=== PATIENT | female | born 1985 | race Caucasian/White ===

== ENCOUNTER → 2020-08-16 08:53 | Outpatient (BNVA) | payer OTHER, SELFPAY | PROVIDERS: Family Provider Family Medicine; Visit Provider Obstetrics & Gynecology | DX: R10.2 Pelvic and perineal pain (principal) | CPT/HCPCS: 76830 ==

== ENCOUNTER → 2020-10-28 08:38 | Outpatient (BNVA) | payer OTHER, SELFPAY | PROVIDERS: Family Provider Family Medicine; Visit Provider Obstetrics & Gynecology | DX: Z20.828 Contact with and (suspected) exposure to other viral communicable diseases (principal) | CPT/HCPCS: 87635 ==

== ENCOUNTER 2020-11-02 07:37 | Day surgery (SDC) | payer OTHER, SELFPAY ==
[2020-10-31 11:35] VITALS: BMI 33.9
--- NOTE | 2020-10-31 11:59 | ANES.PREANE2 ---
Pre-Anesthetic Assessment Pre-Anesthetic Assessment: Height/Weight: Height 1.68 m Weight 95.254 kg Preop Diagnosis: Chronic pelvic pain Proposed Procedure: Operation Date: 11/02/20 09:05 Proposed Procedures p Laparoscopy Diagnostic 90136 R10.2(Not Applicable) - Ayo Haynes MD Familial anesthetic complications: NOne Social: Social History: No alcohol and No tobacco Exam: Pre-Anes Outpt Exam: alert, oriented x 3, clear to auscultation bilaterally and regular rate & rhythm Airway: Cervical ROM: WNL MP: 4 Dentition: Other (missing teeth) CV/HEM: Comments: flow-murmur Metabolic: Comments: pcos Anesthetic Plan: ASA status: 2 Anesthesia: General Risk of > 500 ml blood loss (7ml/kg in children): No PFSH Anesthesia PFSH: Medical History Abnormal uterine bleeding (AUB) Chronic pelvic pain in female History of hysteroscopy PCOS (polycystic ovarian syndrome) Surgical History (Updated 10/31/20 @ 08:32 by Ekta Ortega RN) S/P appendectomy Family History Mother Hypertension Thyroid condition Hyperlipidemia Grandfather Hypertension maternal Heart disease maternal Hyperlipidemia maternal Grandmother Colon cancer paternal Denies family history of Ovarian cancer Diabetes Clotting disorder Breast cancer Anesthesia complication Bleeding disorder Uterine cancer Stroke Social History (Updated 10/31/20 @ 08:31 by Ekta Ortega RN) Smoking and tobacco status: never smoked Alcohol intake: current Alcohol intake frequency: other Alcohol type: wine Substance/Drug Use: never Data Anesthesia CBC & Chem 7: 10/31/20 11:50 10/31/20 11:50 Cardiac Studies: No Data to Display
[2020-10-31 12:00] LABS: Add Urine Microscopic? NO
[2020-10-31 12:33] LABS: Bilirubin Urine Neg (Negative); Blood Urine Neg (Negative); Glucose Urine UA Norm (Normal); Ketones Urine Negative (Negative); Leukocyte Esterase Urine Negative (Negative); Nitrate Urine Negative (Negative); Protein Urine Neg (Negative); Specific Gravity, Urine 1.005 (1.005-1.030); Urine Appearance Clear (CLEAR); Urine Color Straw (Yellow); Urobilinogen Urine Norm (Negative); pH Urine 6.5 (5-7)
[2020-10-31 12:34] LABS: Alanine Aminotransferase 17 U/L (0-33); Albumin Level 4.4 g/dL (3.5-5.2); Alkaline Phosphatase 82 IU/L (35-105); Anion Gap 14.1 (5-19); Aspartate Amino Transferase 16 U/L (0-32); Blood Urea Nitrogen 10 mg/dL (6-20); Calcium 9.9 mg/dL (8.5-10.5); Carbon Dioxide 26 mmol/L (22-29); Chloride 101 mmol/L (98-107); Creatinine Clr Calc Pharmacy 149.3246; Globulin 3.3 g/dL (1.3-4.6); Glomerular Filtration Rate 112.5 mL/min (90-130); Glucose 94 mg/dL (65-115); Osmolality Calculated 283 mOsm/kg (285-295); Potassium 4.1 mmol/L (3.5-5.1); Sodium 137 mmol/L (136-145); Total Bilirubin 0.2 mg/dL (0.15-1.2); Total Protein 7.7 g/dL (6.6-8.7)
[2020-10-31 12:38] LABS: Basophils # 0.1 10^3/uL (0.0-0.1); Basophils % 0.6 %; Eosinophils # 0.2 10^3/uL (0.0-0.8); Eosinophils % 1.4 %; Hematocrit 41.5 % (37.0-47.0); Hemoglobin 12.8 g/dL (11.5-15.3); Lymphocytes # 2.4 10^3/uL (0.8-4.8); Lymphocytes % 23.2 %; Mean Corpuscular HGB Conc 30.8 g/dL (30.0-36.0); Mean Corpuscular Hemoglobin 26.9 pg (28.0-34.0); Mean Corpuscular Volume 87.2 fL (81-99); Mean Platelet Volume 11.2 fL (7.4-10.4); Monocytes # 0.7 10^3/uL (0.2-0.9); Monocytes % 6.7 %; Neutrophils # 7.09 10^3/uL (1.8-7.7); Neutrophils % 67.6 %; Nucleated Red Blood Cells % 0 %; Platelet Count 294 10^3/cmm (130-400); Red Blood Count 4.76 10^6/uL (4.1-5.3); Red Cell Distribution Width 13.3 % (12.1-15.1); White Blood Count 10.5 10^3/uL (4.0-10.0)
[2020-11-02] VITALS (11 sets, daily range): BP systolic 125–158; BP diastolic 41–108; PULSE 70–94; RESP 15–18; TEMP 36.1–36.2; O2SAT 95–100
--- NOTE | 2020-11-02 08:03 | P.ANESUD_ITS ---
Pre-Anesthetic Update Pre-Anesthetic Assessment: Date of Surgery/Procedure: 11/02/20 Preop Annalisa gnosis: Chronic pelvic pain Proposed Procedure: Operation Date: 11/02/20 09:05 Proposed Procedures p Laparoscopy Diagnostic 07712 R10.2(Not Applicable) - Ayo Haynes MD Any changes to Pre-Anesthetic Assessment?: No Labs Last 48hrs: Laboratory Results - last 48 hr 10/31/20 10/31/20 10/31/20 11:50 11:50 11:50 WBC 10.5 H RBC 4.76 Hgb 12.8 Hct 41.5 MCV 87.2 MCH 26.9 L MCHC 30.8 RDW 13.3 Plt Count 294 MPV 11.2 H Neut % (Auto) 67.6 Lymph % (Auto) 23.2 [place] % (Auto) 6.7 Eos % (Auto) 1.4 Baso % (Auto) 0.6 Neut # (Auto) 7.09 Lymph # (Auto) 2.4 [place] # (Auto) 0.7 Eos # (Auto) 0.2 Baso # (Auto) 0.1 Nucleated RBC % (a uto) 0 Nucleated RBCs # 0.0 Sodium 137 Potassium 4.1 Chloride 101 Carbon Dioxide 26 Anion Gap 14.1 BUN 10 Creatinine 0.6 GFR Calculation 112.5 Glucose 94 Calculated Osmolal ity 283 L Calcium 9.9 Total Bilirubin 0.2 AST 16 ALT 17 Alkaline Phosphata se 82 Total Protein 7.7 Albumin 4.4 Globulin 3.3 Urine Color Straw Urine Appearance Clear Urine pH 6.5 Ur Specific Gravit y 1.005 Urine Protein Neg Urine Glucose (UA) Norm Urine Ketones Negative Urine Blood Neg Urine Nitrate Negative Urine Bilirubin Neg Urine Urobilinogen Norm Ur Leukocyte Fabi ase Negative Blood Type Rho(D) Type Antibody Screen 10/31/20 11:50 WBC RBC Hgb Hct MCV MCH MCHC RDW Plt Count MPV Neut % (Auto) Lymph % (Auto) [place] % (Auto) Eos % (Auto) Baso % (Auto) Neut # (Auto) Lymph # (Auto) [place] # (Auto) Eos # (Auto) Baso # (Auto) Nucleated RBC % (a uto) Nucleated RBCs # Sodium Potassium Chloride Carbon Dioxide Anion Gap BUN Creatinine GFR Calculation Glucose Calculated Osmolal ity Calcium Total Bilirubin AST ALT Alkaline Phosphata se Total Protein Albumin Globulin Urine Color Urine Appearance Urine pH Ur Specific Gravit y Urine Protein Urine Glucose (UA) Urine Ketones Urine Blood Urine Nitrate Urine Bilirubin Urine Urobilinogen Ur Leukocyte Fabi ase Blood Type O Positive Rho(D) Type Positive Antibody Screen Negative Vitals: Pulse Rhythm 11/02/20 07:55 Pulse Strength 3+ Normal 11/02/20 07:55 Oxygen Delivery Me thod 11/02/20 07:55 Exam: Pre-Anes Outpt Exam: alert, oriented x 3, clear to auscultation bilaterally and regular rate & rhythm Cardiac Studies: No Data to Display
--- NOTE | 2020-11-02 08:24 | W.PM.OPSUD ---
Surgery/Procedure H&P Update DATE OF PROCEDURE: November 02, 2020 DATE H&P PERFORMED: 10/31/20 H&P UPDATE INFORMATION: I have reviewed H&P completed within last 30 days, I have examined patient prior to procedure and No changes to prior documentation PREOP DIAGNOSIS: Chronic pelvic pain PLANNED PROCEDURE: Operation Date: 11/02/20 09:05 Proposed Procedures p Laparoscopy Diagnostic 25850 R10.2(Not Applicable) - Ayo Haynes MD
[2020-11-02] MEDS: sodium chloride 0.9% 1,000 ML 30 ML IV (08:38)
[2020-11-02] MEDS: scopolamine 1.5 Patch 1 PATCH TRANSDERMA (08:38)
[2020-11-02 09:02] LABS: OR HCG Qualitative Urine Negative (Negative)
--- NOTE | 2020-11-02 12:03 | P.OP_ITS ---
Operative Report Date of procedure: November 02, 2020 Pre-op Diagnosis: Chronic pelvic pain Post-op diagnosis: same Procedure Done: Diagnostic laparoscopy. Fulguration of endometriosis lesions Pathology: none sent Surgeon: Ayo Haynes MD Anesthesia: General Estimated blood loss (mL): 2 IV fluids (mL): 1,200 Urine output (mL): 100 Findings: Moderate endometriosis Condition: stable Disposition: PACU Brief History: 35-year-old female with a history of chronic pelvic pain unresponsive to medical management Procedure: DESCRIPTION OF PROCEDURE: After informed consent, the patient was taken to the operating room where general anesthesia was administered. The patient was examined under anesthesia and found to have a normal uterus with normal adnexa. She was placed in the dorsal lithotomy position and prepped and draped in sterile fashion. Pre- Procedure Time-Out verifying the correct patient identity, correct procedure verified with consent, correct site and side, correct patient position, availability of correct implants and any special equipment or requirements was performed and acknowledge by the OR team. A weighted speculum was placed in the vagina, and the anterior lip of cervix was grasped with the single toothed tenaculum. A uterine manipulator was advanced into the endocervical. Tenaculum was removed after uterine manipulator was secured. The speculum was removed from the vagina. An intraumbilical incision was made with a scalpel. While tenting up on the abdomen, a Verres needle with sleeve was admitted into the intra-abdominal cavity. A saline drop test was performed and noted to be within normal limits. Pneumoperitoneum was attained with 4 liters of carbon dioxide. The Verres needle was removed. A 5 mm trocar and sleeve were admitted into the abdomen and laparoscopic confirmation of location was achieved, A second incision was made 3 cm above the symphysis pubis, and a 5 mm trocar and sleeve were admitted into the abdomen under direct, laparoscopic visualization without complication. A survey revealed normal abdominal anatomy but pelvic survey showsl uterus with serosal endometriosis, left and right adnexa. A 5 mm blunt probe was advanced through the second trocar sleeve, and light manipulation of ovaries and uterus to assess the posterior aspects was performed red endometriosis lesions noted in the posterior cul-de-sac. The endometriosis lesions were fulgurated with monopolar spatula without complications. No bleeding was noted. The carbon dioxide was allowed to escape from the abdomen. The instruments were removed, and skin cover with a bandage. The instruments were removed from the vagina, and excellent hemostasis was noted. The patient tolerated the procedure well, and sponge, lap and needle count were correct times two. The patient taken to the recovery room in good condition.
[2020-11-02] MEDS: ondansetron 2 mg/ML SDV 2 mL 4 MG IVP ×2 (12:29→13:07)
[2020-11-02] MEDS: HYDROcodone-acetaminophen 5-325 mg Tablet 1 TAB PO (12:58)
--- NOTE | 2020-11-02 13:00 | ANE.PACU2 ---
Inpatient post-anesthesia follow up: Airway intact: Yes Vital signs: Temperature 97 F Pulse Rate 70 Respiratory Rate 18 Blood Pressure 150/94 Pulse Oximetry 98 Oxygen Delivery Me thod Room Air Oxygen Flow Rate 8 Fraction of Inspir ed Oxygen Hydration adequate: Yes Nausea and vomiting: No Pain level: 2 Mental status: Baseline
== END 2020-11-02 13:58 | disposition home or self-care (01) ==
PROVIDERS: Visit Provider Obstetrics & Gynecology
PROC: (CPT 49320; principal; 2020-11-02 09:05)
DX: R10.2 Pelvic and perineal pain (principal); E28.2 Polycystic ovarian syndrome; N80.3 Endometriosis of pelvic peritoneum
CPT/HCPCS: 58662; 12345; 36415; 80053; 81003; 84703; 85025; 86850; 86900; 96365; J0690; J2405; J2704; J3010; J3490; J7030

== ENCOUNTER 2023-10-16 09:29 | Outpatient (CLI) | payer OTHER, SELFPAY ==
--- NOTE | 2023-10-16 09:30 | MM_ITS ---
WS: [id number] SCREENING DIGITAL TOMOSYNTHESIS MAMMOGRAM WITH CAD HISTORY: SCREENING COMPARISON: None available. Bilateral CC and MLO with tomosynthesis views submitted. Synthetic mammography reviewed. Computer aid ed detection analyzed. Breast composition: There are scattered areas of fibroglandular density. No suspicious masses, microc alcifications or architectural distortion. IMPRESSION: MM/[place] [id number] BI-RADS: 1-Negative FOLLOW UP: 1 Year Follow-up
== END 2023-10-16 09:30 | disposition home or self-care (01) ==
LOC: MOBLMAM 09:37
PROVIDERS: PCP Family Medicine; Visit Provider Family Medicine
DX: Z12.31 Encounter for screening mammogram for malignant neoplasm of breast (principal)
CPT/HCPCS: 77063; 77067

== ENCOUNTER 2025-01-01 20:12 | Emergency (ER) | payer OTHER, SELFPAY ==
--- NOTE | 2025-01-01 20:15 | XRR_ITS ---
PROCEDURE INFORMATION: Exam: XR Left Foot Exam date and time: 01/01/2025 9:18 PM Age: 39 years old Clinical indication: Injury or trauma; Sprain or strain; Patient sustained twisting injury to left foot and ankle. Diffuse swelling to dorsal surface of foot. Unable to bear weight. TECHNIQUE: Imaging protocol: Radiologic exam of the left foot. Views: 3 or more views. COMPARISON: CR (LOW EXM, ) 01/01/2025 9:18 PM FINDINGS: Bones/joints: The 1st interspace is wide which raises some concern for a Lisfranc ligament injury. Tiny osseous fragments are seen in this location. MRI would be definitive. Soft tissues: Normal. XR/XR foot LT min 3V* [id number] IMPRESSION: Findings concerning for Lisfranc ligament injury. Recommend MRI to exclude underlying disruption.
[2025-01-01 20:18] VITALS: BP 149/74; PULSE 79; RESP 16; TEMP 36.3; O2SAT 99; BMI 34.8
--- NOTE | 2025-01-01 21:11 | XRR_ITS ---
PROCEDURE INFORMATION: Exam: XR Left Ankle Exam date and time: 01/01/2025 9:18 PM Age: 39 years old Clinical indication: Injury or trauma; Sprain or strain; Patient sustained twisting injury to left foot and ankle. Diffuse swelling to dorsal surface of foot. Unable to bear weight. TECHNIQUE: Imaging protocol: Radiologic exam of the left ankle. Views: 3 or more views. COMPARISON: CR (LOW EXM, ) 01/01/2025 9:18 PM FINDINGS: Bones/joints: Normal. Soft tissues: Normal. XR/XR ankle LT min 3V* [id number] IMPRESSION: No acute findings.
--- NOTE | 2025-01-01 21:14 | W.ED.EXTPRO ---
HPI - Extremity Problem General: Chief complaint: Extremity Injury, Lower Stated complaint: left foot may have broken Time Seen by Provider: 01/01/25 20:37 Source: patient Mode of arrival: ambulatory Limitations: no limitations History of Present Illness: 39-year-old female states that she had fell this evening and twisted her left foot has pain to the dorsum of her foot along with swelling. States she not been able to bear weight. States pain sharp in nature rates it a 7 out of 10 denies any knee pain has had some slight ankle pain. Associated symptoms: Deny chest pain, fever(s) or rash Related Data Home Medications ?Medication ?Instructions ?Recorded ?Confirmed fluticasone propionate 50 2 spray intranasal DAILY 08/09/20 07/03/24 mcg/actuation nasal spray,suspension (Flonase Allergy Relief) melatonin 5 mg capsule 5 mg PO .hs 08/09/20 07/03/24 sertraline 50 mg tablet 75 mg PO DAILY 08/09/20 07/03/24 B-complex with vitamin C (Super B 1 tab PO DAILY 10/31/20 07/03/24 Complex-Vitamin C tablet) cholecalciferol (vitamin D3) 25 25 mcg PO DAILY 10/31/20 07/03/24 mcg (1,000 unit) capsule Previous Rx's ?Medication ?Instructions ?Recorded elagolix 150 mg tablet 150 mg PO DAILY #90 tabs 12/12/20 elagolix 150 mg tablet (Orilissa) 150 mg PO DAILY endometriosis, 07/03/24 pelvic pain, dyspareunia #90 tabs hydrocodone 5 mg-acetaminophen 325 1 tab PO Q6H PRN pain #14 tabs 01/01/25 mg tablet Allergies Allergy/AdvReac Type Severity Reaction Status Date / Time No Known Allergies Allergy Verified 07/03/24 14:06 Review of Systems Const: Denies: fever(s), chills, body aches or change in appetite ENMT: Denies: throat pain or dental pain Card: Denies: chest pain Resp: Denies: dyspnea GI: Denies: abdominal pain, nausea, vomiting or diarrhea Musc: Reports: extremity pain and extremity swelling; Denies: neck pain or back pain Skin/Breast: Denies: rash Neuro: Denies: headache(s) PFSH ED PFSH: Medical History Aftercare following surgery of the genitourinary system Abnormal uterine bleeding (AUB) PCOS (polycystic ovarian syndrome) Chronic pelvic pain in female Surgical History History of hysteroscopy S/P appendectomy Family History Mother Hypertension Thyroid disease Hyperlipidemia Grandfather Hypertension maternal Heart disease maternal Hyperlipidemia maternal Grandmother Colon cancer paternal Denies family history of Ovarian cancer Diabetes Clotting disorder Breast cancer Anesthesia complication Bleeding disorder Uterine cancer Stroke Social History Smoking and tobacco/nicotine status: never used tobacco/nicotine Alcohol intake: current Alcohol intake frequency: other Alcohol type: wine Substance/Drug Use: never Physical Exam Const: COMMON NORMALS: no acute distress, patient oriented x3 and healthy appearing HENMT: COMMON NORMALS: normocephalic and atraumatic HEAD & SCALP: normocephalic and atraumatic Neck/C-Spine: COMMON NORMALS: full ROM and supple Chest: COMMONS NORMALS: normal inspection of the chest Resp: COMMON NORMALS: normal respiratory effort Cardio: COMMON NORMALS: regular rate, regular rhythm and No murmurs present (Cardio) RATE: regular rate RHYTHM: regular rhythm Extremity: NARRATIVE EXTREMITY EXAM: Tenderness swelling noted to dorsum of left foot no obvious deformity distal pulses intact Neuro: COMMON NORMALS: patient oriented x3, moves all extremities and no focal motor deficits Psych: COMMON NORMALS: mental status grossly normal, Normal thought process present and cooperative THOUGHT PROCESS: Normal thought process present Skin: COMMON NORMALS: no rashes or lesions noted and no wounds GENERAL SKIN EXAM: no rashes or lesions noted Course Vital Signs: Vital signs: Vital Signs Temperature 97.4 F L 01/01/25 20:18 Pulse Rate 79 01/01/25 20:18 Respiratory Rate 16 01/01/25 20:18 Blood Pressure 149/74 01/01/25 20:18 Pulse Oximetry 99 01/01/25 20:18 Oxygen Delivery Me thod Room Air 01/01/25 20:18 MDM - Extremity (Nontraumatic) Medical Decision Making Patient presents here with left foot pain x-ray shows a possible Lisfranc injury will immobilize she is to be nonweightbearing follow-up with podiatry. Medical Records I reviewed the patient's medical records. XR interpretation done by ED provider, pending radiology final review ED provider radiology interpretation(s): Possible Lisfranc injury Discharge Plan Discharge Patient Disposition: Home Clinical Impression: Lisfranc fracture Condition: Stable Prescriptions: New hydrocodone-acetaminophen 5-325 mg tablet 1 tab PO Q6H PRN (Reason: pain) Qty: 14 0RF No Action B-complex with vitamin C [Super B Complex-Vitamin C] Tablet 1 tab PO DAILY cholecalciferol (vitamin D3) 25 mcg (1,000 unit) capsule 25 mcg PO DAILY elagolix 150 mg tablet 150 mg PO DAILY Qty: 90 0RF sertraline 50 mg tablet 75 mg PO DAILY fluticasone propionate [Flonase Allergy Relief] 50 mcg/actuation spray,suspension 2 spray INTRANASAL DAILY Rx Instructions: administer into each nostril melatonin 5 mg capsule 5 mg PO .hs [place] 150 mg tablet 150 mg PO DAILY Qty: 90 1RF Discharge Orders: Discharge ED (Routine); Ordered 01/01/25 Ordered By: Gabriel Hill Referrals: John Hillman MD [Primary Care Provider] - David Zavaleta DPM [Physician] - 4-7 days Discharge Diet: Advance as tolerated Discharge Activity: Limit activity as instructed and Use walker/crutches as instructed Patient Instructions: Foot Fracture in Adults (ED), Opioid Safety Print Language: Portuguese Coding Level of Care Code ED Machine Operator Hop Worker for Marcella Dominguez
[2025-01-01] MEDS: HYDROcodone-acetaminophen 5-325 mg Tablet 1 TAB PO (21:29)
[2025-01-01 22:11] VITALS: BP 142/67; PULSE 56; RESP 18; O2SAT 96
== END 2025-01-01 22:12 | disposition home or self-care (01) ==
PROVIDERS: Emergency Provider Emergency Medicine; PCP Family Medicine
DX: S92.812A Other fracture of left foot, initial encounter for closed fracture (principal); X58.XXXA Exposure to other specified factors, initial encounter
CPT/HCPCS: 29515; 73610; 73630; 99283; E0114

== ENCOUNTER 2025-01-05 10:56 | Outpatient (CLI) | payer OTHER, SELFPAY | END 2025-01-05 10:57 | disposition home or self-care (01) | LOC: SPT 10:57 | PROVIDERS: PCP Family Medicine; Visit Provider Podiatrist Foot & Ankle Surgery | DX: S93.622A Sprain of tarsometatarsal ligament of left foot, initial encounter (principal); X58.XXXA Exposure to other specified factors, initial encounter | CPT/HCPCS: 97760; L4361 ==

== ENCOUNTER 2025-01-08 13:31 | Outpatient (CLI) | payer OTHER, SELFPAY ==
--- NOTE | 2025-01-08 13:45 | MRR_ITS ---
PROCEDURE INFORMATION: Exam: MR Left Lower Extremity Other Than Joint Without Contrast; Foot Exam date and time: 01/08/2025 2:04 PM Age: 39 years old Clinical indication: Injury or trauma; Fall; Blunt trauma and sprain or strain; Left; Injury date: 01/01/25; Injury details: PT fell on Monday 01/01 and caught foot under weight. ; Additional info: Eval for lisfranc injury TECHNIQUE: Imaging protocol: Magnetic resonance imaging of the left lower extremity without contrast. Exam focused on the foot. COMPARISON: CR (LOW EXM, ) 01/01/2025 9:18 PM FINDINGS: Bones/joints: There is minimal widening of the 1st/2nd metatarsal interspace. There is mild edema involving the 1st tarsometatarsal joint. Alignment is otherwise maintained. No discrete fractures are visualized LIGAMENTS: Lisfranc ligament: There is disruption of the Lisfranc ligament with mild edema within the soft tissues interposed between the 2nd metatarsal base and medial cuneiform bone and surrounding the 1st metatarsal bone. TENDONS: Flexor tendons of foot: Unremarkable. No evidence of tear. Tibialis posterior tendon: Unremarkable as visualized. Peroneal tendons: Unremarkable as visualized. Extensor tendons of foot: Unremarkable. No evidence of tear. Tibialis anterior tendon: Unremarkable as visualized. Tarsal canal (Sinus tarsi): Unremarkable. Tarsal tunnel: Unremarkable. Soft tissues: Unremarkable. Plantar fascia: Unremarkable as visualized. MR/MR foot LT wo con* [id number] IMPRESSION: 1. Lisfranc ligament tear with minimal widening of the 1st/2nd metatarsal interspace 2. Degenerative changes of the 1st metatarsophalangeal joint
== END 2025-01-08 13:32 | disposition home or self-care (01) ==
LOC: RAD 13:32
PROVIDERS: PCP Family Medicine; Visit Provider Podiatrist Foot & Ankle Surgery
DX: S93.622A Sprain of tarsometatarsal ligament of left foot, initial encounter (principal); W19.XXXA Unspecified fall, initial encounter; M19.072 Primary osteoarthritis, left ankle and foot
CPT/HCPCS: 73718

== ENCOUNTER 2025-01-13 10:27 | Day surgery (SDC) | payer OTHER, SELFPAY ==
[2025-01-13] VITALS (10 sets, daily range): BP systolic 119–148; BP diastolic 70–97; PULSE 65–88; RESP 13–23; TEMP 36.2–36.6; O2SAT 92–100; BMI 34.8
--- NOTE | 2025-01-13 | XR_ITS ---
WS: [id number] Left foot, C-arm fluoroscopy views, 01/13/2025 Clinical Data: JAISON PICS Comparison: Left foot, 01/01/2025 Findings: Dr. Zavaleta performed surgery on the left foot XR/XR foot LT min 3V* [id number] Impression: Left foot surgery.
[2025-01-13 11:07] LABS: OR HCG Qualitative Urine Negative (Negative)
--- NOTE | 2025-01-13 11:16 | ANES.PREANE2 ---
Pre-Anesthetic Assessment Height/Weight: Height 1.68 m Weight 97.976 kg Temp Pulse Resp BP Pulse Ox O2 Del Method 97.8 F 88 17 148/97 97 Room Air 01/13/25 10:57 01/13/25 10:57 01/13/25 10:57 01/13/25 10:57 01/13/25 10:57 01/13/25 11:10 Preop Diagnosis: Left Lisfranc ligament rupture. Operation Date: 01/13/25 12:00 Proposed Procedures p ORIF Lisfranc(Left) - David Zavaleta DPM Familial anesthetic complications: None Was Beta Sarah taken within 24 hours: N/A Was Clonidine taken within 24 hours: N/A Last intake: Intake Last Liquid Date 01/12/25 Last Liquid Time 23:55 Last Solid Date 01/12/25 Last Solid Time 21:00 Social No alcohol and No tobacco Exam alert, oriented x 3, clear to auscultation bilaterally and regular rate & rhythm Airway Mallampati: Class IV Dentition: full Comments: Comments: small mouth opening Metabolic Morbid Obesity PCOS Anesthetic Plan ASA status: 2 Anesthesia: MAC Risk of > 500 ml blood loss (7ml/kg in children): No Medications/Allergies Home Medications ?Medication ?Instructions ?Recorded ?Confirmed ?Last Taken ?Type fluticasone propionate 50 2 spray intranasal DAILY 08/09/20 01/12/25 01/12/25 History mcg/actuation nasal spray,suspension (Flonase Allergy Relief) melatonin 5 mg capsule 5 mg PO .hs 08/09/20 01/12/25 11/01/20 History sertraline 50 mg tablet 75 mg PO DAILY 08/09/20 01/12/25 01/13/25 History CAM walker #1 ea 01/05/25 01/05/25 Unknown Rx Allergies Allergy/AdvReac Type Severity Reaction Status Date / Time No Known Allergies Allergy Verified 01/05/25 09:57 [facility], [facility] Anesthesia Medical History Aftercare following surgery of the genitourinary system Abnormal uterine bleeding (AUB) PCOS (polycystic ovarian syndrome) Chronic pelvic pain in female Surgical History History of hysteroscopy S/P appendectomy Family History Mother Hypertension Thyroid disease Hyperlipidemia Grandfather Hypertension maternal Heart disease maternal Hyperlipidemia maternal Grandmother Colon cancer paternal Denies family history of Ovarian cancer Diabetes Clotting disorder Breast cancer Anesthesia complication Bleeding disorder Uterine cancer Stroke Social History Smoking and tobacco/nicotine status: never used tobacco/nicotine Alcohol intake: current Alcohol intake frequency: other Alcohol type: wine Substance/Drug Use: never Data Anesthesia Cardiac Studies: No Data to Display
[2025-01-13] MEDS: gabapentin 300 mg Capsule PO (11:23)
[2025-01-13] MEDS: CELEcoxib 200 mg Capsule 400 MG PO (11:24)
[2025-01-13] MEDS: sodium chloride 0.9% 1,000 ML 30 ML IV (11:26)
--- NOTE | 2025-01-13 11:43 | P.HPUD_ITS ---
Surgery/Procedure H&P Update DATE OF PROCEDURE: January 13, 2025 DATE H&P PERFORMED: 01/05/25 H&P UPDATE INFORMATION: I have reviewed H&P completed within last 30 days, I have examined patient prior to procedure, No changes to prior documentation and H&P is in [facility] EMR on date indicated PREOP DIAGNOSIS: Left Lisfranc ligament rupture. PLANNED PROCEDURE: Operation Date: 01/13/25 12:00 Proposed Procedures p ORIF Lisfranc(Left) - David Zavaleta DPM
[2025-01-13] MEDS: ceFAZolin 2,000 mg SDV 2000 MG IVP (12:05)
[2025-01-13] MEDS: scopolamine 1 mg PATCH 1 PATCH TRANSDERMA (12:14)
[2025-01-13] MEDS: BUPivacaine 0.5% INJ 10 mL 20 ML INJECTION (12:32)
[2025-01-13] MEDS: BUPivacaine liposome 13.3 mg/mL SDV 20 mL 266 MG INJECTION (12:32)
--- NOTE | 2025-01-13 13:06 | W.PM.BPON ---
Date of Procedure: 01/31/24 Surgeon: David Zavaleta DPM Fountain Worker(s): Jose Procedure(s) performed: Open reduction internal fixation left Lisfranc rupture. Findings of the procedure(s): Instability at left first intermetatarsal space Estimated blood loss: 5 mL Specimen(s) removed: No specimens Post-operative diagnosis: Left foot Lisfranc fracture dislocation
--- NOTE | 2025-01-13 13:07 | P.OP_ITS ---
Operative Report Date of procedure: January 13, 2025 Pre-op diagnosis: Subluxation of tarsal joint left foot S93.312A Post-op diagnosis: Subluxation of tarsal joint left foot S93.312A Procedure done: Open reduction internal fixation left Lisfranc fracture. CPT code 34857 Implants: [employer] tight rope mini tight rope suture button Specimens removed/disposition: None Pathology: None Surgeon: David Zavaleta DPM Microbiology Quality Control Technician: Jose Estimated blood loss: 5 34 IV fluids: see intraoperative documentation Urine output: None Complications: None Findings: Instability at left first intermetatarsal space along Lisfranc ligament injury. Brief History: Ms. Mckenna is a new 39 year old female patient here for evaluation of her left foot injury DOI: 01/01/25. The patient is a 39-year-old female presenting with a Lisfranc injury. The injury involves a disruption of the Lisfranc ligament and is suspected to have a possible Lisfranc fracture. Occurring recently, the patient reports a notable impact affecting her left foot. The injury has been characterized by instability, potential chronic pain, and prolonged issues if not properly addressed; however, the diagnosis was made promptly. Imaging, including an X-ray, revealed several yumi fractures and ligamentous disruption, evidenced by gapping. Thus far, the patient has been non-weightbearing and utilizing a knee scooter. Previous interventions included immobilization with plans for a boot and an MRI to further assess the extent of ligament damage. 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 X-ray 01/01/2025 left foot shows positive yumi sign and displacement of the first intermetatarsal space proximally will require MRI for surgical planning. 39-year-old female with history of Lisfranc injury presenting with a Lisfranc ligament disruption and possible fracture. The injury poses risks of long-term foot instability and pain. Given the nature of the injury, prompt diagnosis has been made. The X-ray findings indicate ligamentous disruptions with multiple yumi fractures, and the injury's potential to profoundly impact foot stability is evident. Current non-weightbearing status is appropriate, and further imaging with MRI is warranted to detail the extent of ligament involvement. MRI confirmed tear of the Lisfranc ligament with widening of the first and second metatarsal interspace MRI performed 01/08/2025 of the left foot I reviewed at length with the patient, the risks, potential complications, benefits, alternatives, expectations, and typical outcomes associated with the surgery. The risks and potential complications were explained in detail, including but not limited to infection, wound dehiscence or soft tissue complications, bleeding and hematoma, chronic edema, neuritis or nerve damage producing numbness or chronic pain, CRPS, failure to relieve pain or worsening pain, thick / painful / unsightly scar, limited motion / stiffness, malposition, delayed union, malunion, or nonunion, fracture, reaction to implants, anesthetic complications, venous thromboembolism, and deformity recurrence. I discussed the notion of no regrets with the patient as it pertains to complications and outcomes. The patient seemed to understand the nature of the proposed care and required convalescence. They asked appropriate questions, answered to their satisfaction. They are aware no guarantees can be made as to a satisfactory outcome and they understand there may be other possible unforeseen complications or outcomes not listed here that will be treated accordingly if they arise. There were no written or implied guarantees given to the patient. They gave informed consent to proceed. Plan for dynamic stabilization with mini tight rope left midfoot. Procedure: Under mild sedation the patient was brought to the operating room and remained on the gurney in supine position. A timeout was performed. Anesthesia was then administered by the anesthesia service. Local anesthesia injected by myself at the left foot consisting of 20 cc of 0.5 sent Marcaine plain in a proximal Oakley block fashion and 20 cc of Exparel proximal to the operative site subcutaneously in a grid like fashion. Well-padded pneumatic tourniquet applied to the left ankle. Left lower extremity was scrubbed, prepped and draped utilizing normal aseptic technique. Left foot were then exanguinated with an Esmarch bandage and tourniquet inflated to 250 mmHg. Incision was made at the dorsal lateral aspect of the left first metatarsal base and medial cuneiform through skin these were minimal incisions with dissection carried down to bone utilizing sharp and blunt technique. Care taken retract and preserve neurovascular and tendinous structures. All bleeders were ligated and cauterized as necessary. K wires advanced from dorsal distal lateral at the metaphyseal flare of the lateral aspect of the left second metatarsal base coursing in a oblique fashion anatomically along the course of the Lisfranc ligament and advanced slightly plantar and medial and proximal exiting the plantar medial aspect of the left cuneiform. Drill tunnel was performed and a suture button provided by [employer] this was a mini tight rope was secured, the Lisfranc ligament and diastases of the first metatarsal space was reduced to anatomic position and secured with the tight rope with dynamic stabilization appreciated intraoperatively once secured there was stability at the first tarsometatarsal joint and second tarsometatarsal joint with life stress views. The incisions were irrigated with saline solution and closed with 4-0 nylon. Dressings consisting of nonadherent Xeroform, sterile gauze, Kerlix followed by application of well-padded multilayer posterior splint. Tourniquet was then deflated and a prompt hyperemic response is noted to the distal digits of the left foot. Patient tolerated the procedure and anesthesia well and was transferred to the PACU with vital signs stable and vascular status intact. Following a period of postoperative monitoring so we discharged home without home care instructions and scheduled follow-up. Advised 81 mg aspirin to be taken once daily likely for the next 6 weeks until she is weightbearing to help potentially reduce the risk of deep vein thrombosis. She was advised to remain strict nonweightbearing and elevate left foot while resting.
[2025-01-13] MEDS: HYDROcodone-acetaminophen 10-325 mg Tablet 1 TAB PO (13:58)
--- NOTE | 2025-01-13 14:25 | ANE.PACU2 ---
Inpatient post-anesthesia follow up: Airway intact: Yes Vital signs: Temperature 97.5 F Pulse Rate 73 Respiratory Rate 18 Blood Pressure 136/81 Pulse Oximetry 100 Oxygen Delivery Me thod Room Air Oxygen Flow Rate Fraction of Inspir ed Oxygen Hydration adequate: Yes Nausea and vomiting: No Pain level: 1 Mental status: Baseline
== END 2025-01-13 14:24 | disposition home or self-care (01) ==
PROVIDERS: Anesthesiology; PCP Family Medicine; Visit Provider Podiatrist Foot & Ankle Surgery
PROC: (CPT 28615; principal; 2025-01-13 12:00)
DX: S93.312A Subluxation of tarsal joint of left foot, initial encounter (principal); E66.01 Morbid (severe) obesity due to excess calories; E28.2 Polycystic ovarian syndrome; Z79.899 Other long term (current) drug therapy; X58.XXXA Exposure to other specified factors, initial encounter; Z68.34 Body mass index [BMI] 34.0-34.9, adult
CPT/HCPCS: 28615; 73630; 76000; 81025; C1713; C9290; J0690; J1100; J2250; J2405; J2704; J3010; J3490; J7030

== ENCOUNTER → 2025-01-28 07:21 | Outpatient (BNVA) | payer OTHER, SELFPAY | PROVIDERS: PCP Family Medicine; Visit Provider Podiatrist Foot & Ankle Surgery | DX: Z98.890 Other specified postprocedural states (principal) | CPT/HCPCS: 73630 ==

== ENCOUNTER → 2025-02-25 13:28 | Outpatient (BNVA) | payer OTHER, SELFPAY | PROVIDERS: PCP Family Medicine; Visit Provider Podiatrist Foot & Ankle Surgery | DX: Z98.890 Other specified postprocedural states (principal) | CPT/HCPCS: 73630 ==

== ENCOUNTER → 2025-04-08 13:00 | Outpatient (BNVA) | payer OTHER, SELFPAY | PROVIDERS: PCP Family Medicine; Visit Provider Podiatrist Foot & Ankle Surgery | DX: Z98.890 Other specified postprocedural states (principal); G57.72 Causalgia of left lower limb | CPT/HCPCS: 73630 ==

== ENCOUNTER → 2025-05-20 13:59 | Outpatient (BNVA) | payer BC, SELFPAY | PROVIDERS: PCP Family Medicine; Visit Provider Podiatrist Foot & Ankle Surgery | DX: Z98.890 Other specified postprocedural states (principal) | CPT/HCPCS: 73630 ==